=== PATIENT | male | born 1950 | race Caucasian/White ===

== ENCOUNTER 2017-08-08 13:35 | Inpatient (IN) | payer MEDICAID, OTHER ==
[~2017-08-08 13:35] MED LIST: Eptifibatide 0.75 mg/ml 75 MG/100 ML BOTTLE IV ONE; Eptifibatide 20 mg/10mL Inj IVP ONE; HEPARIN SODIUM/NS 2,000 ML IV ONE; Iodixanol 320 MG/ML 100 ML BOTTLE IV ONE; Iodixanol 320 MG/ML 200 ML BOTTLE IV ONE; Iohexol 350mgl/ml 50 ML ONE; Lidocaine 2% Inj (20ml) ONE
[2017-08-08] MEDS ORDERED: Midazolam 2 MG/2 ML VIAL ONE ×2 (13:45→14:14)
[2017-08-08] MEDS ORDERED: Morphine 2 mg/ml ISec ONE (14:06)
[2017-08-08] MEDS ORDERED: Metoprolol 1 mg/ml Inj IVP ONE ×2 (14:30→14:37)
[2017-08-08] MEDS ORDERED: Sodium Chloride 0.9% 1,000 ML IV SCH (14:45)
[2017-08-08] MEDS: Eptifibatide 0.75 mg/ml 75 MG/100 ML BOTTLE IV SCH (14:50)
[2017-08-08] MEDS ORDERED: Bacitracin 500 Units/gm Oint Foilpak UD ONE (15:16)
--- NOTE | 2017-08-08 16:52 | CP.PCM.CON ---
History of Present Illness - History of Present Illness History of Present Illness: CRITICAL CARE CONSULT NOTE HPI: 67yo male with PMhx of HTN, DM presents as transfer from [facility] for cardiac cath. Pt presented there with chest pain for 1 hour, midsternal non radiating, found to have EKG changes, taken to cardiac dental laboratory technician here at [facility], with 2 ISABEL stents placed in RCA as per report. Currently awake, alert in NAD, denies cp, sob, palpitations, [place], dizziness. PMHx as above PSHx as above Allergies NKDA Meds as per EMR ROS as above FHx NC Review of Systems - Review of Systems Review of Systems: as per hpi Past Patient History - CARDIAC Hx Hypertension: Yes Meds Allergies/Adverse Reactions: Allergies Allergy/AdvReac Type Severity Reaction Status Date / Time No Known Allergies Allergy Verified 08/08/17 12:41 - Medications Medications: Current Medications Aspirin (Ecotrin) 81 mg PO DAILY [facility] Atorvastatin Calcium (Lipitor) 40 mg PO DIN [facility] Last Admin: 08/08/17 16:12 Dose: 40 mg Clopidogrel Bisulfate (Plavix) 75 mg PO DAILY [facility] Eptifibatide (Integrilin) 75 mg in 100 mls @ 4.717 mls/hr IV .[id number] [facility]; 1 MCG/KG/MIN PRN Reason: Protocol Stop: 08/09/17 14:46 Sodium Chloride (Sodium Chloride 0.9%) 1,000 mls @ 100 mls/hr IV .Q10H [facility] Stop: 08/08/17 20:00 Last Admin: 08/08/17 15:31 Dose: 100 mls/hr Metoprolol Tartrate (Lopressor) 25 mg PO BID [facility] Physical Exam - Constitutional Appears: Well, Non-toxic, No Acute Distress - Head Exam Head Exam: NORMAL INSPECTION - Eye Exam Eye Exam: Normal appearance - ENT Exam ENT Exam: Mucous Membranes Moist - Respiratory Exam Respiratory Exam: Clear to Auscultation Bilateral, NORMAL BREATHING PATTERN - Cardiovascular Exam Cardiovascular Exam: REGULAR RHYTHM, +S1, +S2 - GI/Abdominal Exam GI & Abdominal Exam: Normal Bowel Sounds, Soft - Extremities Exam Extremities exam: Positive for: normal inspection - Neurological Exam Neurological exam: Alert, Oriented x3 Results - Vital Signs Recent Vital Signs: Last Vital Signs Temp Pulse 89 08/08/17 16:20 Resp 18 08/08/17 16:20 BP 141/95 H 08/08/17 16:00 Pulse Ox 99 08/08/17 16:20 Assessment & Plan - Assessment and Plan (Free Text) Assessment: 67yo male s/p PCI CAD s/p PCI with 2 ISABEL stents HTN DM - afebrile, HD stable, comfortable, on Integrillin dirp Recommend: - supp o2 as needed - check UA, UCx, BCx, Procalcitonin - BP control - ASA, Plavix, Statin, BB - check Lipid panel, HgbA1C - Sliding scale - cont Integrillin as per cardiology for 18h - GI ppx - DVT ppx - Monitor in CCU
--- NOTE | 2017-08-08 16:57 | CP.PCM.HP ---
<Nazario Byrne - Last Filed: 08/09/17 05:48> History of Present Illness - History of Present Illness History of Present Illness: Nazraio Caty PGY 1 IM H&P Note for Dr. Mcdaniel's Hospitalist Service cc: CODE HEART s/p inferior wall STEMI Mr. Gutierrez is a 67-year-old male with a past medical history of diabetes, hypertension, and hyperlipidemia who presents from [facility] for Inferior wall STEMI. Code heart was called in the ED and patient received left heart catheterization by Dr. Benitez via Right Femoral artery. The patient received 2 ISABEL in the RCA. When seen in the ICU post cath,the patient states that he had experienced Left jaw pain while shopping at [employer], which he attributed to a toothache that he has been having and that he has seen a dentist for. When the patient arrived at home, he experienced chest pain severe enough to warrant his [id number] to call EMT. Currently,The patient is comfortable and denies any chest pain,Shortness of breath, fevers/chills, abdominal Pain, and any urinary/bowel habit changes.The patient states that he is visiting from [facility] and that he has been here for two months current. 12-pt ROS was reviewed and is otherwise unremarkable. 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 [place]; denies tobacco/etoh/substance abuse FHx: + heart dz Present on Admission - Present on Admission Any Indicators Present on Admission: No Review of Systems - Review of Systems All systems: reviewed and no additional remarkable complaints except (as per HPI ) Past Patient History - Past Medical History & Family History Past Medical History?: Yes - Past Social History Smoking Status: Never Smoked Alcohol: None Drugs: Denies Home Situation {Lives}: With Family - CARDIAC Hx Hypercholesterolemia: Yes Hx Hypertension: Yes - PULMONARY Hx Respiratory Disorders: No - NEUROLOGICAL Hx Neurological Disorder: No - HEENT Hx HEENT Problems: No - RENAL Hx Chronic Kidney Disease: No - ENDOCRINE/METABOLIC Hx Diabetes Mellitus Type 2: Yes - HEMATOLOGICAL/ONCOLOGICAL Hx Blood Disorders: No - INTEGUMENTARY Hx Dermatological Problems: No - MUSCULOSKELETAL/RHEUMATOLOGICAL Hx Musculoskeletal Disorders: No - GASTROINTESTINAL Hx Gastrointestinal Disorders: No - GENITOURINARY/GYNECOLOGICAL Hx Genitourinary Disorders: No - PSYCHIATRIC Hx Psychophysiologic Disorder: No - SURGICAL HISTORY Hx Surgeries: Yes Hx Cholecystectomy: Yes Hx Musculoskeletal Surgery: Yes Hx Open Reduction Internal Fixation: Yes Hx Tonsillectomy: Yes Meds Allergies/Adverse Reactions: Allergies Allergy/AdvReac Type Severity Reaction Status Date / Time No Known Allergies Allergy Verified 08/08/17 17:57 Physical Exam - Constitutional Appears: Well, Non-toxic, No Acute Distress - Head Exam Head Exam: ATRAUMATIC, NORMAL INSPECTION, NORMOCEPHALIC - Eye Exam Eye Exam: EOMI, Normal appearance, PERRL - ENT Exam ENT Exam: Mucous Membranes Moist, Normal Exam, Normal Oropharynx Additional comments: multiple crowns on teeth in place no signs of gingival/gum disease or infection - Neck Exam Neck exam: Positive for: Normal Inspection - Respiratory Exam Respiratory Exam: Clear to Auscultation Bilateral, NORMAL BREATHING PATTERN. absent: Rales, Rhonchi, Wheezes, Respiratory Distress - Cardiovascular Exam Cardiovascular Exam: RRR, +S1, +S2 - GI/Abdominal Exam GI & Abdominal Exam: Normal Bowel Sounds, Soft. absent: Distended, Tenderness - Extremities Exam Extremities exam: Positive for: normal inspection. Negative for: pedal edema, tenderness Additional comments: pressure packing over R inguinal region s/p cath no bleeding noted from superficial site - Back Exam Back exam: NORMAL INSPECTION - Neurological Exam Neurological exam: Alert, Oriented x3 - Psychiatric Exam Psychiatric exam: Normal Affect, Normal Mood - Skin Skin Exam: Normal Color Results - Vital Signs Recent Vital Signs: Last Vital Signs Temp Pulse 89 08/08/17 16:20 Resp 18 08/08/17 16:20 BP 141/95 H 08/08/17 16:00 Pulse Ox 99 08/08/17 16:20 Assessment & Plan - Assessment and Plan (Free Text) Assessment: 67 yo Ethiopian M with PMH DM2, HTN, and HLD who presented with inferior wall TX s/ p cath with placement of 2 ISABEL in RCA by Dr. Benitez. Patient also has leukocytosis likely reactive and hyperglycemia. Plan: 1. CAD s/p stent placement - post cath precautions in place - ASA, Plavix, Lipitor, Lopressor - Integrilin ordered by Cardio - ACEi will be ordered on discharge after discussion with cardio - A1c and lipid panel ordered - Dr. Benitez following, recs appreciated 2. Leukocytosis - UA and CXR ordered - likely reactive but will take AM labs HHD Patient was seen, examined and discussed with attending, Dr. Jonas Byrne PGY1 <Yoni Mcdaniel - Last Filed: 08/09/17 07:55> Results - Vital Signs Recent Vital Signs: Last Vital Signs Temp 98.9 F 08/09/17 04:00 Pulse 98 H 08/09/17 06:00 Resp 20 08/09/17 06:00 BP 109/63 08/09/17 06:00 Pulse Ox 98 08/09/17 06:00 - Labs Result Diagrams: 08/09/17 06:30 08/09/17 06:30 Labs: Laboratory Results - last 24 hr 08/08/17 08/09/17 08/09/17 22:05 02:05 06:30 WBC RBC Hgb Hct MCV MCH MCHC RDW Plt Count MPV Gran % Lymph % (Auto) Woods % (Auto) Eos % (Auto) Baso % (Auto) Gran # Lymph # Woods # Eos # Baso # Sodium 132 Potassium 4.6 Chloride 102 Carbon Dioxide 19 L Anion Gap 15 BUN 23 H Creatinine 1.4 Est GFR ( Amer) > 60 Est GFR (Non-Af Amer) 50 POC Glucose (mg/dL) 354 H Random Glucose 340 H* Calcium 8.5 Total Bilirubin 1.1 AST 410 H ALT 99 H Alkaline Phosphatase 103 Total Protein 6.9 Albumin 3.7 Globulin 3.2 Albumin/Globulin Ratio 1.2 Triglycerides 217 H Cholesterol 187 LDL Cholesterol Direct 114 HDL Cholesterol 39 Urine Color Yellow Urine Appearance Sl cloudy Urine pH 5.5 Ur Specific Woody 1.015 Urine Protein 30 H Urine Glucose (UA) >=1000 Urine Ketones Negative Urine Blood Moderate H Urine Nitrate Negative Urine Bilirubin Negative Urine Urobilinogen 0.2 Ur Leukocyte Esterase Negative Urine RBC 1 - 3 Urine WBC 0 - 2 Ur Epithelial Cells 0 - 2 Amorphous Sediment Few Urine Bacteria Rare 08/09/17 08/09/17 06:30 07:40 WBC 12.1 H RBC 3.86 Hgb 11.0 L Hct 33.4 L MCV 86.5 MCH 28.5 MCHC 32.9 RDW 13.8 Plt Count 195 MPV 10.8 Gran % 69.5 H Lymph % (Auto) 18.9 L Woods % (Auto) 10.0 H Eos % (Auto) 1.0 L Baso % (Auto) 0.6 Gran # 8.41 H Lymph # 2.3 Woods # 1.2 H Eos # 0.1 Baso # 0.07 Sodium Potassium Chloride Carbon Dioxide Anion Gap BUN Creatinine Est GFR ( Amer) Est GFR (Non-Af Amer) POC Glucose (mg/dL) 366 H Random Glucose Calcium Total Bilirubin AST ALT Alkaline Phosphatase Total Protein Albumin Globulin Albumin/Globulin Ratio Triglycerides Cholesterol LDL Cholesterol Direct HDL Cholesterol Urine Color Urine Appearance Urine pH Ur Specific Woody Urine Protein Urine Glucose (UA) Urine Ketones Urine Blood Urine Nitrate Urine Bilirubin Urine Urobilinogen Ur Leukocyte Esterase Urine RBC Urine WBC Ur Epithelial Cells Amorphous Sediment Urine Bacteria Attending/Attestation - Attestation I have personally seen and examined this patient.: Yes I have fully participated in the care of the patient.: Yes I have reviewed all pertinent clinical information: Yes Notes (Text): 08/09/17 07:52 67 year old male with past medical history of hypertension, diabetes and dyslipidemia who presented with chest pain found to have STEMI. S/p cardiac cath with ISABEL in RCA with Dr. Benitez. Continue with aspirin, plavix, statin, and lopresser as per cardiology. Echocardiogram, lipid panel and A1C are ordered. Leukocytosis likely reactive secondary to above. Will follow up on UA/CXR. Son is at bedside and questions were answered. Yoni Mcdaniel MD Hospitalist.
[2017-08-08 19:46] VITALS: BMI 21.7
[2017-08-08] MEDS ORDERED: Pneumococcal 23-Valent Vaccine IM ONE (19:46)
[2017-08-08] MEDS ORDERED: Influenza Vaccine 60 mcg/0.5 mL SYR (4YR UP) IM ONE (19:46)
[2017-08-08] MEDS: Insulin Lispro (humaLOG) MEDIUM Coverage SC SCH (22:14)
[2017-08-09 02:19] LABS: PH,URINE 5.5 (4.7-8.0); URINE BILIRUBIN NEGATIVE (NEGATIVE); URINE BLOOD MODERATE (NEGATIVE); URINE GLUCOSE (UA) >=1000 mg/dL (NEGATIVE); URINE LEUKOCYTE ESTERASE NEGATIVE Leu/uL (NEGATIVE); URINE NITRATE NEGATIVE (NEGATIVE); URINE PROTEIN 30 mg/dL (<30 mg/dL); URINE UROBILINOGEN 0.2 E.U./dL (<1 E.U./dL)
[2017-08-09 02:23] LABS: URINE APPEARANCE SL CLOUDY (CLEAR); URINE COLOR YELLOW (YELLOW)
[2017-08-09 02:33] LABS: URINE AMORPHOUS SEDIMENT FEW; URINE BACTERIA RARE (NEG); URINE EPITHELIAL CELLS 0 - 2 /hpf (0-5); URINE WBC 0 - 2 /hpf (0-6)
[2017-08-09 07:02] LABS: BASO # 0.07 K/mm3 (0.0-2.0); BASO % 0.6 % (0.0-3.0); EOS # 0.1 (0.0-0.7); GRAN # 8.41 (1.4-6.5); GRAN % 69.5 % (50.0-68.0); LYMPH # 2.3 (1.2-3.4); LYMPH % 18.9 % (22.0-35.0); MEAN CELL VOLUME 86.5 fl (80.0-105.0); MEAN CORPUSCULAR HEMOGLOBIN 28.5 pg (25.0-35.0); MEAN CORPUSCULAR HGB CONC 32.9 g/dl (31.0-37.0); MEAN PLATELET VOLUME 10.8 fl (7.0-11.0); MONO # 1.2 (0.1-0.6); RBC 3.86 10^6/uL (3.5-6.1); RED CELL DISTRIBUTION WIDTH 13.8 % (11.5-14.5); WHITE BLOOD COUNT 12.1 10^3/ul (4.5-11.0)
--- NOTE | 2017-08-09 07:33 | RAD ---
HISTORY: s/p cath, wbc elevated COMPARISON: No prior. FINDINGS: LUNGS: No active pulmonary disease. PLEURA: No significant pleural effusion identified, no pneumothorax apparent. CARDIOVASCULAR: Normal. OSSEOUS STRUCTURES: No significant abnormalities. VISUALIZED UPPER ABDOMEN: Normal. OTHER FINDINGS: None. IMPRESSION: No acute cardiopulmonary disease appreciated.
[2017-08-09 07:39] LABS: LDL CHOLESTEROL 114 mg/dL (0-129)
[2017-08-09 07:47] LABS: ALB/GLOB RATIO 1.2 (1.1-1.8); ALBUMIN 3.7 g/dL (3.0-4.8); ALT/SGPT 99 U/L (7-56); AST/SGOT 410 U/L (17-59); BLOOD UREA NITROGEN 23 mg/dL (7-21); CALCIUM 8.5 mg/dL (8.4-10.5); GFR AFRICAN-AMERICAN > 60; GFR NON-AFRICAN AMERICAN 50; HDL CHOLESTEROL 39 mg/dL (29-60)
[2017-08-09] MEDS: Insulin Lispro (humaLOG) MEDIUM Coverage SC SCH ×3 (08:11→12:09)
--- NOTE | 2017-08-09 08:33 | CARDCATH ---
PROCEDURE DATE: 08/08/2017 HISTORY: The patient is a 67-year-old male traveling from [place] to visit his grandchild, who presented with chest pain consistent with an acute anterior wall NH starting at 11:00 a.m. He was brought to [place] [facility] where he was found to have ST elevations in the inferior leads. Because of this, the patient was transferred here for emergency cardiac cath and PTCA. The blood and plasma laboratory assistant at [facility] was down. In the blood and plasma laboratory assistant in [place], the patient would complain of substernal chest pain. His cardiac risk factors include diabetes mellitus, hypertension and hypercholesterolemia. PROCEDURE: Left heart catheterization with coronary arteriography and left ventriculogram followed by PTCA and stent of an RCA. The right femoral artery was cannulated with 6-Dutch sheath. There were no complications. I performed moderate sedation which included the presence of an independent trained observer that assisted in monitoring the patient's level of consciousness and physiologic status. After administration of fentanyl and Versed, my intra service time was 30 minutes. The patient was started on intravenous Integrilin. She was given 4000 units of intravenous heparin, which resulted in an above normal ACT The findings on catheterization revealed a left main artery that was unremarkable. The LAD revealed an eccentric 60% stenosis in its proximal portion with the rest of the LAD and diagonal vessels with intimal irregularities without significant stenoses. The circumflex artery revealed a 80% stenosis in the proximal portion which was a small to moderate vessel. The obtuse marginal branch was free of significant disease. The right coronary artery which is a dominant vessel revealed a subtotaled occlusion in its proximal portion. After restoring perfusion, there was an 80% stenosis in the midportion of the RCA as well. Left ventriculogram was performed in the UPTON projection. In the UPTON projection, the inferior wall was hypokinetic with the anterior wall moving well. Estimated ejection fraction is 45%. The guiding catheter was placed in the ostium of the RCA. An 0.014 ATW wire was used to cross the critical lesion. A 2.0 balloon was utilized to predilate the proximal subtotaled occlusion. A 3.5 x 12 mm drug-eluting stent was placed and deployed in the proximal lesion, a 2.75 x 8 mm drug-eluting stent was placed and deployed in the mid RCA lesion. After balloon deflation removal, repeat coronary arteriography revealed an excellent result with no residual stenosis and JOSE III flow. The patient tolerated the procedure well. The patient was transferred to the ICU in stable condition. In summary, the procedure was an emergency PTCA and stent of an occluded RCA, treated with heparin, Integrilin as well as PTCA and stent of two lesions with a drug-eluting stent. Cardiac catheterization reveals critical lesions in the circumflex artery, borderline critical lesion in the proximal LAD, an occluded RCA. LV function revealed an hypokinetic inferior wall. Given these findings, the patient will be in ICU, treated with intravenous Integrilin for the next 18 hours. We will continue on aspirin and Plavix. We will continue to monitor closely his hemodynamics and his hospital course. Doug Benitez MD
--- NOTE | 2017-08-09 10:16 | CP.PCM.PN ---
Subjective - Date & Time of Evaluation Date of Evaluation: 08/09/17 Time of Evaluation: 07:30 - Subjective Subjective: Pt seen and examined, reports no major complaints. Sheath pulled, off integrillin Objective - Vital Signs/Intake and Output Vital Signs (last 24 hours): Temp Pulse Resp BP Pulse Ox 98.9 F 102 H 20 128/86 98 08/09/17 04:00 08/09/17 09:47 08/09/17 06:00 08/09/17 09:47 08/09/17 06:00 Intake and Output: 08/09/17 08/09/17 06:59 18:59 Intake Total 500 Output Total 660 Balance -160 - Medications Medications: Current Medications Aspirin (Ecotrin) 81 mg PO DAILY [facility] Last Admin: 08/09/17 09:42 Dose: 81 mg Atorvastatin Calcium (Lipitor) 40 mg PO DIN [facility] Last Admin: 08/08/17 16:12 Dose: 40 mg Clopidogrel Bisulfate (Plavix) 75 mg PO DAILY [facility] Last Admin: 08/09/17 09:47 Dose: 75 mg Eptifibatide (Integrilin) 75 mg in 100 mls @ 4.717 mls/hr IV .[id number] [facility]; 1 MCG/KG/MIN PRN Reason: Protocol Stop: 08/09/17 14:46 Last Admin: 08/08/17 14:50 Dose: 4.717 mls/hr Insulin Human Lispro (Humalog Med) 0 units SC ACHS [facility] PRN Reason: Protocol Last Admin: 08/09/17 08:11 Dose: 8 units Metoprolol Tartrate (Lopressor) 50 mg PO BID [facility] Last Admin: 08/09/17 09:47 Dose: 50 mg - Labs Labs: 08/09/17 06:30 08/09/17 06:30 - Constitutional Appears: Well, Non-toxic, No Acute Distress - Head Exam Head Exam: NORMAL INSPECTION - Eye Exam Eye Exam: Normal appearance - ENT Exam ENT Exam: Mucous Membranes Moist - Respiratory Exam Respiratory Exam: Clear to Ausculation Bilateral, NORMAL BREATHING PATTERN - Cardiovascular Exam Cardiovascular Exam: REGULAR RHYTHM, +S1, +S2 - GI/Abdominal Exam GI & Abdominal Exam: Soft, Normal Bowel Sounds - Extremities Exam Extremities Exam: Full ROM, Normal Inspection - Neurological Exam Neurological Exam: Alert, Awake, Oriented x3 Assessment and Plan - Assessment and Plan (Free Text) Assessment: 67yo male s/p PCI CAD s/p PCI with 2 ISABEL stents HTN DM - afebrile, HD stable, comfortable - off Integrillin dirp - sheath pulled Recommend: - supp o2 as needed - BP control - ASA, Plavix, Statin, BB - check Lipid panel, HgbA1C - Sliding scale, Start levemir 10u QHS - follow up cardiology - GI ppx - DVT ppx - stable transfer to telemetry
--- NOTE | 2017-08-09 12:18 | CP.PCM.PN ---
<Virgil Sifuentes - Last Filed: 08/09/17 12:04> Subjective - Date & Time of Evaluation Date of Evaluation: 08/09/17 Time of Evaluation: 07:55 - Subjective Subjective: Subjective: Patient seen and examined at bedside. Resting comfortably in bed. No acute overnight events. Patient states chest pain has resolved. Offers no new complaints at this time. Denies fever, chills, chest pain, shortness of breath, abdominal pain, nausea, vomiting, diarrhea, constipation, and urinary symptoms. 12-point review of systems negative except as indicated in the HPI Physical Examination: - Constitutional Appears: Well, Non-toxic, No Acute Distress - Head Exam Head Exam: ATRAUMATIC, NORMAL INSPECTION, NORMOCEPHALIC - Eye Exam Eye Exam: EOMI, Normal appearance, PERRL - ENT Exam ENT Exam: Mucous Membranes Moist, Normal Exam, Normal Oropharynx Additional comments: multiple crowns on teeth in place no signs of gingival/gum disease or infection - Neck Exam Neck exam: Positive for: Normal Inspection - Respiratory Exam Respiratory Exam: Clear to Auscultation Bilateral, NORMAL BREATHING PATTERN. absent: Rales, Rhonchi, Wheezes, Respiratory Distress - Cardiovascular Exam Cardiovascular Exam: RRR, +S1, +S2 - GI/Abdominal Exam GI & Abdominal Exam: Normal Bowel Sounds, Soft. absent: Distended, Tenderness - Extremities Exam Extremities exam: Positive for: normal inspection. Negative for: pedal edema, tenderness Additional comments: no bleeding noted from superficial site - Neurological Exam Neurological exam: Patient is awake, alert, responds to verbal stimuli, answers questions appropriately, follows commands, and moves extremities past midline - Psychiatric Exam Psychiatric exam: Normal Affect, Normal Mood - Skin Skin Exam: Normal Color Assessment and Plan: Patient is a 67 y/o male with a PMHx of DM2, HTN, and HLD who presented for evaluation and treatment of chest pain. Patient was found to have an inferior wall MN and is s/p cath with placement of 2 ISABEL in RCA by Dr. Benitez. STEMI - post cath precautions in place - c/w ASA, Plavix, Lipitor, Lopressor, and intregrillin - ACEi will be ordered on discharge after discussion with cardio - A1c pending - lipid panel reviewed and appreciated- TAG elevate - cardiology consulted- Dr. Benitez following, recs appreciated Elevated LFTs - likely 2/2 cardiac congestion 2/2 MN - risks and benefits of continuing statin discussed with cardiology- continue statin - will monitor via CMP Leukocytosis - improving likley reactive - UA and CXR reviewed and appreciated Hx of HTN - HR trended, reviewed, and appreciated, will continue to monitor closely - BPs trended, reviewed, and appreciated, will continue to monitor closely - c/w lopressor Hx of DM - elevated glucose levels noted - ISS changed to high - will continue to monitor closely Hx of HPL - lipid profile reviewed- TAGs elevated - risks and benefits of continuing statin discussed with cardiology- continue statin PPX - dvt ppx- intregillin - gi ppx- famotidine Patient seen, case discussed with, and plan approved by attending physician, Dr. Mcdaniel. Objective - Vital Signs/Intake and Output Vital Signs (last 24 hours): Temp Pulse Resp BP Pulse Ox 98.9 F 102 H 20 128/86 98 08/09/17 04:00 08/09/17 09:47 08/09/17 06:00 08/09/17 09:47 08/09/17 06:00 Intake and Output: 08/09/17 08/09/17 06:59 18:59 Intake Total 500 Output Total 660 Balance -160 - Medications Medications: Current Medications Aspirin (Ecotrin) 81 mg PO DAILY [facility] Last Admin: 08/09/17 09:42 Dose: 81 mg Atorvastatin Calcium (Lipitor) 40 mg PO DIN [facility] Last Admin: 08/08/17 16:12 Dose: 40 mg Clopidogrel Bisulfate (Plavix) 75 mg PO DAILY [facility] Last Admin: 08/09/17 09:47 Dose: 75 mg Docusate Sodium (Colace) 100 mg PO BID [facility] Eptifibatide (Integrilin) 75 mg in 100 mls @ 4.717 mls/hr IV .[id number] [facility]; 1 MCG/KG/MIN PRN Reason: Protocol Stop: 08/09/17 14:46 Last Admin: 08/08/17 14:50 Dose: 4.717 mls/hr Insulin Human Lispro (Humalog Med) 0 units SC ACHS [facility] PRN Reason: Protocol Last Admin: 08/09/17 08:11 Dose: 8 units Metoprolol Tartrate (Lopressor) 50 mg PO BID [facility] Last Admin: 08/09/17 09:47 Dose: 50 mg - Labs Labs: 08/09/17 06:30 08/09/17 06:30 <Yoni Mcdaniel Heather - Last Filed: 08/09/17 13:37> Objective - Vital Signs/Intake and Output Vital Signs (last 24 hours): Temp Pulse Resp BP Pulse Ox 98.9 F 102 H 20 128/86 98 08/09/17 04:00 08/09/17 09:47 08/09/17 06:00 08/09/17 09:47 08/09/17 06:00 Intake and Output: 08/09/17 08/09/17 06:59 18:59 Intake Total 500 Output Total 660 Balance -160 - Medications Medications: Current Medications Aspirin (Ecotrin) 81 mg PO DAILY [facility] Last Admin: 08/09/17 09:42 Dose: 81 mg Atorvastatin Calcium (Lipitor) 40 mg PO DIN [facility] Last Admin: 08/08/17 16:12 Dose: 40 mg Clopidogrel Bisulfate (Plavix) 75 mg PO DAILY [facility] Last Admin: 08/09/17 09:47 Dose: 75 mg Docusate Sodium (Colace) 100 mg PO BID [facility] Famotidine (Pepcid) 20 mg IVP DAILY [facility] Eptifibatide (Integrilin) 75 mg in 100 mls @ 4.717 mls/hr IV .[id number] [facility]; 1 MCG/KG/MIN PRN Reason: Protocol Stop: 08/09/17 14:46 Last Admin: 08/08/17 14:50 Dose: 4.717 mls/hr Insulin Human Lispro (Humalog High) 0 units SC ACHS [facility] PRN Reason: Protocol Metoprolol Tartrate (Lopressor) 50 mg PO BID [facility] Last Admin: 08/09/17 09:47 Dose: 50 mg - Labs Labs: 08/09/17 06:30 08/09/17 06:30 Attending/Attestation - Attestation I have personally seen and examined this patient.: Yes I have fully participated in the care of the patient.: Yes I have reviewed all pertinent clinical information, including history, physical exam and plan: Yes Notes (Text): 08/09/17 13:30 67 year old male with past medical history of hypertension, diabetes and dyslipidemia who presented with chest pain found to have STEMI. He was seen by cardiology and is s/p cardiac cath with ISABEL in RCA. Continue with aspirin, plavix, statin, and lopresser. LFTs are elevated today. Hepatitis panel is ordered. Continue to monitor LFTs while on statin. Leukocytosis likely reactive secondary to above and has improved. CXR/UA were negative. Yoni Mcdaniel MD Hospitalist.
[2017-08-09 12:26] LABS: HEPATITIS B SURFACE AG NEGATIVE (NEGATIVE)
[2017-08-09 12:32] LABS: HEPATITIS A IGM NEGATIVE (NEGATIVE); HEPATITIS B CORE AB Negative (NEGATIVE)
--- NOTE | 2017-08-09 13:11 | PN ---
DATE: 08/09/2017 CARDIOLOGY FOLLOWUP SUBJECTIVE: The patient is chest pain free. OBJECTIVE: VITAL SIGNS: Blood pressure is 128/86, heart rate is 107. NECK: Negative JVD. LUNGS: Without rales. HEART: With S1, S2. EXTREMITIES: Without edema. Right groin site is stable. LABORATORY DATA: LFTs are elevated. IMPRESSION: 1. Status post acute inferior wall myocardial infarction. 2. Diabetes mellitus. 3. Emergency percutaneous transluminal coronary angioplasty and stent of an occluded right coronary artery. 4. Hypercholesterolemia. PLAN: Given these findings, we will transfer the patient to telemetry and begin ambulation today. If the patient is stable, we will consider a low-level stress test in the morning prior to discharge. Doug Benitez MD
--- NOTE | 2017-08-09 15:06 | CARD ---
APPROVED REPORT EKG Measurement Heart [id number] [place] [id number] [id number] <Conclusion> Normal sinus rhythm Inferior-posterior infarct, possibly acute ACUTE [place] Consider right ventricular involvement in acute inferior infarct Abnormal ECG
--- NOTE | 2017-08-09 15:11 | CARD ---
APPROVED REPORT EKG Measurement Heart [id number] [place] [id number] <Conclusion> Normal sinus rhythm Inferior-posterior infarct, possibly acute ACUTE [place] Consider right ventricular involvement in acute inferior infarct Abnormal ECG
[2017-08-09 16:33] LABS: HEPATITIS C ANTIBODY Negative (NEGATIVE)
[2017-08-09] MEDS: Insulin Lispro (HUMAlog) HIGH Coverage SC SCH ×2 (16:52→22:10)
[2017-08-09] MEDS: Eptifibatide 0.75 mg/ml 75 MG/100 ML BOTTLE IV SCH (17:13)
--- NOTE | 2017-08-09 19:57 | CARD ---
APPROVED REPORT EXAM: Two-dimensional and M-mode echocardiogram with Doppler and color Doppler. INDICATION S/P CATH/CP 2D DIMENSIONS Left Atrium (2D)4.1 (1.6-4.0cm)IVSd1.2 (0.7-1.1cm) LVDd3.4 (3.9-5.9cm)PWd1.2 (0.7-1.1cm) LVDs2.6 (2.5-4.0cm)FS (%) 21.4 % LVEF (%)44.5 (>50%) M-Mode DIMENSIONS Aortic Root2.90 (2.2-3.7cm)Aortic Cusp Exc.1.60 (1.5-2.0cm) Aortic Valve AoV Peak Vsbsmstj804.0cm/Carmen Peak GR.7mmHg Mitral Valve MV E Cqjbpktq95.4cm/sMV A Nvkjbrtf097.0cm/sE/A ratio0.7 TDI Lateral E' Peak V5.46cm/sMedial E' Peak V4.00cm/sE/Lateral E'15.6 E/Medial E'21.4 Pulmonary Valve PV Peak Hfkklzky18.6cm/sPV Peak Grad.2mmHg Tricuspid Valve TR Peak Nmybylhg059su/sRAP [id number] Peak Gr.17mmHg [id number] LEFT VENTRICLE The left ventricle is normal size. There is normal left ventricular wall thickness. The systolic function is mildly impaired.EF-45% There is global hypokinesis of the left ventricle. There is normal LV segmental wall motion. Transmitral Doppler flow pattern is Grade III-reversible restrictive diastolic dysfunction. No left ventricle thrombus noted on this study. There is no ventricular septal defect visualized. There is no left ventricular aneurysm. There is no mass noted in the left ventricle. RIGHT VENTRICLE The right ventricle is normal size. There is normal right ventricular wall thickness. The right ventricular systolic function is normal. ATRIA The left atrium is mildly dilated. The right atrium size is normal. The interatrial septum is intact with no evidence for an atrial septal defect. AORTIC VALVE The aortic valve is thickened but opens well. The aortic valve is mildly sclerotic. There is trace aortic regurgitation. There is no aortic valvular stenosis. There is no aortic valvular vegetation. MITRAL VALVE The mitral valve is thickened but opens well. Mitral regurgitation is mild. There is no mitral valve stenosis. There is no evidence of mitral valve prolapse. TRICUSPID VALVE The tricuspid valve leaflets are thickened , but open well. There is trace tricuspid regurgitation.RVSP-27 mmof hg There is no tricuspid valve stenosis. There is no tricuspid valve prolapse or vegetation. PULMONIC VALVE The pulmonary valve is normal in structure. There is no pulmonic valvular regurgitation. There is no pulmonic valvular stenosis. GREAT VESSELS The aortic root is normal in size. The ascending aorta is normal in size. The pulmonary artery is normal. The IVC is normal in size and collapses >50% with inspiration. PERICARDIAL EFFUSION There is no pleural effusion. There is a trace to small pericardial effusion. <Conclusion> The left ventricle is normal size. There is normal left ventricular wall thickness. The systolic function is mildly impaired.EF-45% There is trace aortic regurgitation. Mitral regurgitation is mild. There is trace tricuspid regurgitation.RVSP-27 mmof hg The IVC is normal in size and collapses >50% with inspiration. There is a trace to small pericardial effusion. No vegetationm or thrombus noted.
[2017-08-10 06:31] LABS: BASO # 0.11 K/mm3 (0.0-2.0); BASO % 1.1 % (0.0-3.0); EOS # 0.4 (0.0-0.7); EOS % 3.5 % (1.5-5.0); GRAN # 6.42 (1.4-6.5); GRAN % 62.8 % (50.0-68.0); HEMOGLOBIN 10.2 g/dL (14.0-18.0); LYMPH # 2.2 (1.2-3.4); LYMPH % 21.3 % (22.0-35.0); MEAN CELL VOLUME 85.4 fl (80.0-105.0); MEAN CORPUSCULAR HEMOGLOBIN 29.1 pg (25.0-35.0); MEAN CORPUSCULAR HGB CONC 34.1 g/dl (31.0-37.0); MEAN PLATELET VOLUME 10.8 fl (7.0-11.0); MONO # 1.2 (0.1-0.6); MONO % 11.3 % (1.0-6.0); RBC 3.5 10^6/uL (3.5-6.1); RED CELL DISTRIBUTION WIDTH 13.7 % (11.5-14.5); WHITE BLOOD COUNT 10.2 10^3/ul (4.5-11.0)
[2017-08-10 07:20] LABS: ALB/GLOB RATIO 1.1 (1.1-1.8); ALBUMIN 3.4 g/dL (3.0-4.8)
[2017-08-10] MEDS: Insulin Lispro (HUMAlog) HIGH Coverage SC SCH ×5 (08:00→21:41)
--- NOTE | 2017-08-10 11:27 | CP.PCM.PN ---
<Virgil Sifuentes - Last Filed: 08/10/17 11:29> Subjective - Date & Time of Evaluation Date of Evaluation: 08/10/17 Time of Evaluation: 10:40 - Subjective Subjective: Subjective: Patient seen and examined at bedside. Resting comfortably in bed. No acute overnight events. Able to ambulate without any overt difficulty. Patient states chest pain has resolved. Offers no new complaints at this time. Denies fever, chills, chest pain, shortness of breath, abdominal pain, nausea, vomiting, diarrhea, constipation, and urinary symptoms. 12-point review of systems negative except as indicated in the HPI Physical Examination: - Constitutional Appears: Well, Non-toxic, No Acute Distress - Head Exam Head Exam: ATRAUMATIC, NORMAL INSPECTION, NORMOCEPHALIC - Eye Exam Eye Exam: EOMI, Normal appearance, PERRL - ENT Exam ENT Exam: Mucous Membranes Moist, Normal Exam, Normal Oropharynx Additional comments: multiple crowns on teeth in place no signs of gingival/gum disease or infection - Neck Exam Neck exam: Positive for: Normal Inspection - Respiratory Exam Respiratory Exam: Clear to Auscultation Bilateral, NORMAL BREATHING PATTERN. absent: Rales, Rhonchi, Wheezes, Respiratory Distress - Cardiovascular Exam Cardiovascular Exam: RRR, +S1, +S2 - GI/Abdominal Exam GI & Abdominal Exam: Normal Bowel Sounds, Soft. absent: Distended, Tenderness - Extremities Exam Extremities exam: Positive for: normal inspection. Negative for: pedal edema, tenderness - Neurological Exam Neurological exam: Patient is awake, alert, responds to verbal stimuli, answers questions appropriately, follows commands, and moves extremities past midline - Psychiatric Exam Psychiatric exam: Normal Affect, Normal Mood - Skin Skin Exam: Normal Color Assessment and Plan: Patient is a 67 y/o [place] male with a PMHx of DM2, HTN, and HLD who presented for evaluation and treatment of chest pain. Patient was found to have an inferior wall MN and is s/p cath with placement of 2 ISABEL [address] RCA by Dr[address] Benitez. STEMI - post cath precautions in place - c/w ASA, Plavix, Lipitor, Lopressor, and intregrillin - ACEi will be ordered on discharge after discussion with cardio - A1c noted- patient education on proper diet and exercise provided - lipid panel reviewed and appreciated- TAG elevate - cardiology consulted- Dr. Benitez following, recs appreciated ARCHANA - creatinine noted to be 1.6 from 1. 4 - IVF NS at 60 - monitor closely via CMP Elevated LFTs - downtrending - likely 2/2 cardiac congestion 2/2 MN - risks and benefits of continuing statin discussed with cardiology- continue statin - will monitor via CMP Leukocytosis - improving likley reactive - UA and CXR reviewed and appreciated Hx of HTN - HR trended, reviewed, and appreciated, will continue to monitor closely - BPs trended, reviewed, and appreciated, will continue to monitor closely - c/w lopressor Hx of DM - elevated glucose levels noted- normalizing - ISS changed to high - will continue to monitor closely Hx of HPL - lipid profile reviewed- TAGs elevated - risks and benefits of continuing statin discussed with cardiology- continue statin PPX - dvt ppx- intregillin - gi ppx- famotidine Patient seen, case discussed with, and plan approved by attending physician, Dr. Mcdaniel. Objective - Vital Signs/Intake and Output Vital Signs (last 24 hours): Temp Pulse Resp BP Pulse Ox 98.9 F 88 26 H 149/95 H 98 08/09/17 04:00 08/10/17 10:39 08/09/17 18:00 08/10/17 10:39 08/09/17 18:00 Intake and Output: 08/10/17 08/10/17 06:59 18:59 Intake Total 0 Output Total 0 Balance 0 - Medications Medications: Current Medications Aspirin (Ecotrin) 81 mg PO DAILY [facility] Last Admin: 08/10/17 10:39 Dose: 81 mg Atorvastatin Calcium (Lipitor) 40 mg PO DIN [facility] Last Admin: 08/09/17 17:00 Dose: 40 mg Clopidogrel Bisulfate (Plavix) 75 mg PO DAILY [facility] Last Admin: 08/10/17 10:39 Dose: 75 mg Docusate Sodium (Colace) 100 mg PO BID [facility] Last Admin: 08/10/17 10:40 Dose: Not Given Famotidine (Pepcid) 20 mg IVP DAILY [facility] Last Admin: 08/10/17 10:39 Dose: 20 mg Insulin Human Lispro (Humalog High) 0 units SC ACHS [facility] PRN Reason: Protocol Last Admin: 08/10/17 08:00 Dose: 5 units Metoprolol Tartrate (Lopressor) 50 mg PO BID [facility] Last Admin: 01/04/18 10:39 Dose: 50 mg - Labs Labs: 08/10/17 05:30 08/10/17 05:30 <Yoni Mcdaniel - Last Filed: 08/10/17 12:47> Objective - Vital Signs/Intake and Output Vital Signs (last 24 hours): Temp Pulse Resp BP Pulse Ox 98.1 F 88 18 149/95 H 99 08/10/17 09:00 08/10/17 10:39 08/10/17 09:00 08/10/17 10:39 08/10/17 09:00 Intake and Output: 08/10/17 08/10/17 06:59 18:59 Intake Total 0 Output Total 0 Balance 0 - Medications Medications: Current Medications Aspirin (Ecotrin) 81 mg PO DAILY [facility] Last Admin: 08/10/17 10:39 Dose: 81 mg Atorvastatin Calcium (Lipitor) 40 mg PO DIN [facility] Last Admin: 08/09/17 17:00 Dose: 40 mg Clopidogrel Bisulfate (Plavix) 75 mg PO DAILY [facility] Last Admin: 08/10/17 10:39 Dose: 75 mg Docusate Sodium (Colace) 100 mg PO BID [facility] Last Admin: 08/10/17 10:40 Dose: Not Given Famotidine (Pepcid) 20 mg IVP DAILY [facility] Last Admin: 08/10/17 10:39 Dose: 20 mg Sodium Chloride (Sodium Chloride 0.9%) 1,000 mls @ 60 mls/hr IV .[id number] [facility] Last Admin: 08/10/17 12:44 Dose: Not Given Insulin Human Lispro (Humalog High) 0 units [facility] PRN Reason: Protocol Last Admin: 08/10/17 11:30 Dose: Not Given Metoprolol Tartrate (Lopressor) 50 mg PO BID [facility] Last Admin: 08/10/17 10:39 Dose: 50 mg - Labs Labs: 08/10/17 05:30 08/10/17 05:30 Attending/Attestation - Attestation I have personally seen and examined this patient.: Yes I have fully participated in the care of the patient.: Yes I have reviewed all pertinent clinical information, including history, physical exam and plan: Yes Notes (Text): 08/10/17 12:45 67 year old male with past medical history of hypertension, diabetes and dyslipidemia who presented with chest pain found to have STEMI. He was seen by cardiology and is s/p cardiac cath with ISABEL in RCA. Continue with aspirin, plavix, statin, and lopresser. LFTs were elevated yesterday but now downtrending today. Hepatitis panel is negative. Continue to monitor LFTs while on statin. Leukocytosis likely reactive secondary to above and has resolved. CXR/UA were negative. Today he has mild ARCHANA; possibly contrast induced nephropathy. Will start on iv fluids and monitor. Possible d/c planning in 24 hrs if stable. Yoni Mcdaniel MD Hospitalist.
[2017-08-10 12:29] VITALS: RESP 18
--- NOTE | 2017-08-10 12:32 | CARD ---
APPROVED REPORT EKG Measurement Heart [id number] [place] [id number] <Conclusion> Normal sinus rhythm Inferior infarct, possibly acute ACUTE [place] Consider right ventricular involvement in acute inferior infarct Abnormal ECG
[2017-08-10] MEDS: Sodium Chloride 0.9% 1,000 ML IV SCH ×2 (12:44→12:59)
--- NOTE | 2017-08-10 13:11 | PN ---
DATE: 08/10/2017 CARDIOLOGY FOLLOWUP SUBJECTIVE: The patient is without shortness of breath, without chest pain. No arrhythmias noted on telemetry. OBJECTIVE: VITAL SIGNS: Blood pressure 149/95, heart rate in the 80s. NECK: Negative JVD. LUNGS: Without rales. HEART: With S1, S2. EXTREMITIES: Without edema. LABORATORY DATA: Chemistries; BUN and creatinine is 26 and 1.6. Hemoglobin is 10.2. IMPRESSION: 1. Status post acute inferior wall myocardial infarction. 2. Status post emergency percutaneous transluminal coronary angioplasty and stent of the right coronary artery. 3. Multivessel coronary artery disease. 4. Renal insufficiency. 5. Diabetes mellitus. PLAN: Given these findings, beta-blockers increase yesterday to 50 b.i.d. We will restart the patient on his antihypertensive medication after we check his creatinine again. In addition, we will do a low-level stress test today. We will plan to discharge in the morning. Doug Benitez MD
[2017-08-10 19:21] VITALS: O2SAT 100
[2017-08-11] MEDS: Sodium Chloride 0.9% 1,000 ML IV SCH (03:20)
[2017-08-11 06:05] VITALS: TEMP 98.5
[2017-08-11 08:00] LABS: BASO # 0.11 K/mm3 (0.0-2.0); BASO % 1.1 % (0.0-3.0); EOS # 0.7 (0.0-0.7); EOS % 7.1 % (1.5-5.0); GRAN # 6.2 (1.4-6.5); GRAN % 61.6 % (50.0-68.0); LYMPH # 2.2 (1.2-3.4); LYMPH % 21.8 % (22.0-35.0); MEAN CELL VOLUME 86.1 fl (80.0-105.0); MEAN CORPUSCULAR HEMOGLOBIN 28.4 pg (25.0-35.0); MONO # 0.8 (0.1-0.6); MONO % 8.4 % (1.0-6.0); RBC 3.52 10^6/uL (3.5-6.1); RED CELL DISTRIBUTION WIDTH 13.9 % (11.5-14.5); WHITE BLOOD COUNT 10.1 10^3/ul (4.5-11.0)
[2017-08-11 08:19] LABS: ALB/GLOB RATIO 1.1 (1.1-1.8); ALBUMIN 3.6 g/dL (3.0-4.8); CALCIUM 8.9 mg/dL (8.4-10.5)
[2017-08-11] MEDS: Insulin Lispro (HUMAlog) HIGH Coverage SC SCH ×2 (09:19→12:41)
[2017-08-11 09:26] VITALS: BP 144/72; PULSE 77
--- NOTE | 2017-08-11 11:22 | PN ---
DATE: 08/11/2017 CARDIOLOGY FOLLOWUP SUBJECTIVE: the patient is asymptomatic. PHYSICAL EXAMINATION: VITAL SIGNS: The blood pressure is 144/72, the heart rate is in the 70s. NECK: Negative JVD. LUNGS: Without rales. HEART: S1, S2. EXTREMITIES: Without edema. LABORATORY DATA: Hemoglobin is 10, BUN and creatinine 1.7, potassium is 4.5, glucose is 256. Low-level stress test was unremarkable. IMPRESSION: 1. Status post acute inferior wall myocardial infarction. 2. Status post emergency percutaneous transluminal coronary angioplasty and stent of an occluded right coronary artery. 3. Diabetes mellitus. 4. Renal insufficiency. 5. Hypertension. 6. Hypercholesterolemia. Given these findings, the patient's cardiac status is stable post ND. The patient can be discharged today. I have discussed with the patient his medications as well as followup. He will follow up with me in the office in a week and two. The patient will need an outpatient stress test in approximately a month to evaluate the need for PTCA of his other vessel disease. Doug Benitez MD
[2017-08-11] MEDS ORDERED: Sodium Chloride 0.9% 1,000 ML IV SCH (11:57)
--- NOTE | 2017-08-11 12:37 | CP.PCM.DIS ---
<Virgil Sifuentes - Last Filed: 08/11/17 14:24> Provider - Provider Date of Admission: 08/08/17 14:35 Attending physician: Molly Moy MD Time Spent in preparation of Discharge (in minutes): 45 Diagnosis - Discharge Diagnosis (1) STEMI (ST elevation myocardial infarction) Status: Resolved Priority: High (2) Hypertension Status: Chronic Priority: Medium (3) Hyperlipidemia Status: Chronic Priority: Medium (4) Diabetes Status: Chronic Priority: Medium (5) Acute kidney failure Status: Acute Hospital Course - Lab Results Lab Results: Most Recent Lab Values WBC 10.1 10^3/ul (4.5-11.0) 08/11/17 07:50 RBC 3.52 10^6/uL (3.5-6.1) 08/11/17 07:50 Hgb 10.0 g/dL (14.0-18.0) L 08/11/17 07:50 Hct 30.3 % (42.0-52.0) L 08/11/17 07:50 MCV 86.1 fl (80.0-105.0) 08/11/17 07:50 MCH 28.4 pg (25.0-35.0) 08/11/17 07:50 MCHC 33.0 g/dl (31.0-37.0) 08/11/17 07:50 RDW 13.9 % (11.5-14.5) 08/11/17 07:50 Plt Count 177 10^3/uL (120.0-450.0) 08/11/17 07:50 MPV 11.0 fl (7.0-11.0) 08/11/17 07:50 Gran % 61.6 % (50.0-68.0) 08/11/17 07:50 Lymph % (Auto) 21.8 % (22.0-35.0) L 08/11/17 07:50 [place] % (Auto) 8.4 % (1.0-6.0) H 08/11/17 07:50 Eos % (Auto) 7.1 % (1.5-5.0) H 08/11/17 07:50 Baso % (Auto) 1.1 % (0.0-3.0) 08/11/17 07:50 Gran # 6.20 (1.4-6.5) 08/11/17 07:50 Lymph # 2.2 (1.2-3.4) 08/11/17 07:50 [place] # 0.8 (0.1-0.6) H 08/11/17 07:50 Eos # 0.7 (0.0-0.7) 08/11/17 07:50 Baso # 0.11 K/mm3 (0.0-2.0) 08/11/17 07:50 Sodium 138 mmol/L (132-148) 08/11/17 07:50 Potassium 4.5 mmol/L (3.6-5.0) 08/11/17 07:50 Chloride 108 mmol/L (98-107) H 08/11/17 07:50 Carbon Dioxide 21 mmol/L (21-33) 08/11/17 07:50 Anion Gap 12 (10-20) 08/11/17 07:50 BUN 27 mg/dL (7-21) H 08/11/17 07:50 Creatinine 1.7 mg/dl (0.8-1.5) H 08/11/17 07:50 Est GFR ( Amer) 49 08/11/17 07:50 Est GFR (Non-Af Amer) 40 08/11/17 07:50 POC Glucose (mg/dL) 404 mg/dL (65-110) H* 08/11/17 11:41 Random Glucose 256 mg/dL (70-110) H 08/11/17 07:50 Hemoglobin A1c 9.3 % (4.2-6.5) H 08/09/17 06:30 Calcium 8.9 mg/dL (8.4-10.5) 08/11/17 07:50 Total Bilirubin 0.7 mg/dL (0.2-1.3) 08/11/17 07:50 AST 94 U/L (17-59) H D 08/11/17 07:50 ALT 83 U/L (7-56) H 08/11/17 07:50 Alkaline Phosphatase 105 U/L (38-126) 08/11/17 07:50 Total Protein 6.7 g/dL (5.8-8.3) 08/11/17 07:50 Albumin 3.6 g/dL (3.0-4.8) 08/11/17 07:50 Globulin 3.2 gm/dL 08/11/17 07:50 Albumin/Globulin Ratio 1.1 (1.1-1.8) 08/11/17 07:50 Triglycerides 217 mg/dL (35-160) H 08/09/17 06:30 Cholesterol 187 mg/dL (130-200) 08/09/17 06:30 LDL Cholesterol Direct 114 mg/dL (0-129) 08/09/17 06:30 HDL Cholesterol 39 mg/dL (29-60) 08/09/17 06:30 Urine Color Yellow (YELLOW) 08/09/17 02:05 Urine Appearance Sl cloudy (CLEAR) 08/09/17 02:05 Urine pH 5.5 (4.7-8.0) 08/09/17 02:05 Ur Specific [place] 1.015 (1.005-1.035) 08/09/17 02:05 Urine Protein 30 mg/dL (<30 mg/dL) H 08/09/17 02:05 Urine Glucose (UA) >=1000 mg/dL (NEGATIVE) 08/09/17 02:05 Urine Ketones Negative mg/dL (NEGATIVE) 08/09/17 02:05 Urine Blood Moderate (NEGATIVE) H 08/09/17 02:05 Urine Nitrate Negative (NEGATIVE) 08/09/17 02:05 Urine Bilirubin Negative (NEGATIVE) 08/09/17 02:05 Urine Urobilinogen 0.2 E.U./dL (<1 E.U./dL) 08/09/17 02:05 Ur Leukocyte Esterase Negative Julia/uL (NEGATIVE) 08/09/17 02:05 Urine RBC 1 - 3 /hpf (0-2) 08/09/17 02:05 Urine WBC 0 - 2 /hpf (0-6) 08/09/17 02:05 Ur Epithelial Cells 0 - 2 /hpf (0-5) 08/09/17 02:05 Amorphous Sediment Few 08/09/17 02:05 Urine Bacteria Rare (NEG) 08/09/17 02:05 Hepatitis A IgM Ab Negative (NEGATIVE) 08/09/17 06:30 Hep Bs Antigen Negative (NEGATIVE) 08/09/17 06:30 Hep B Core IgM Ab Negative (NEGATIVE) 08/09/17 06:30 Hepatitis C Antibody Negative (NEGATIVE) 08/09/17 06:30 - Hospital Course Hospital Course: Patient is a 67 y/o male with a PMHx of DM2, HTN, and HLD who was admitted for evaluation and treatment of chest pain. With the use of physical examinations, lab work, and imaging the patient was diagnosed with and treated for an inferior wall AL and is s/p cath with placement of 2 ISABEL in RCA. He was also treated for his chronic medical conditions. During their hospital stay the patient was seen by cardiology and their recommendations were both appreciated and utilized in the care for this patient. During their hospital stay the patient underwent a cardiac catherization and echocardiogram which were reviewed, appreciated, and utilized in the management of the patients clinical course. The echocardiogram showed an EF of 45%. Patient was treated with antihypertensive medications, insulin, intravenous fluids amongst other empiric/ therapeutic medications. At this time the patient is medically stable for discharge. Patient understands and appreciates discharge plan. Patient instructed to follow up with primary care physicians and referrals within three to five days from discharge. Furthermore, the patient is instructed to take medications as prescribed and to return to emergency room for evaluation of intractable headache, fever, chills, dizziness, chest pain, shortness of breath , abdominal pain, nausea, vomiting, diarrhea, constipation, and urinary symptoms. This is a brief summary of the patients hospital course. Please see patient chart for full details. Discharge Exam - Head Exam Head Exam: NORMAL INSPECTION - Additional Findings Additional findings: - Constitutional Appears: Well, Non-toxic, No Acute Distress - Head Exam Head Exam: ATRAUMATIC, NORMAL INSPECTION, NORMOCEPHALIC - Eye Exam Eye Exam: EOMI, Normal appearance, PERRL - ENT Exam ENT Exam: Mucous Membranes Moist, Normal Exam, Normal Oropharynx Additional comments: multiple crowns on teeth in place no signs of gingival/gum disease or infection - Neck Exam Neck exam: Positive for: Normal Inspection - Respiratory Exam Respiratory Exam: Clear to Auscultation Bilateral, NORMAL BREATHING PATTERN. absent: Rales, Rhonchi, Wheezes, Respiratory Distress - Cardiovascular Exam Cardiovascular Exam: RRR, +S1, +S2 - GI/Abdominal Exam GI & Abdominal Exam: Normal Bowel Sounds, Soft. absent: Distended, Tenderness - Extremities Exam Extremities exam: Positive for: normal inspection. Negative for: pedal edema, tenderness - Neurological Exam Neurological exam: Patient is awake, alert, responds to verbal stimuli, answers questions appropriately, follows commands, and moves extremities past midline - Psychiatric Exam Psychiatric exam: Normal Affect, Normal Mood - Skin Skin Exam: Normal Color Discharge Plan - Discharge Medications Prescriptions: amLODIPine [Norvasc] 5 mg PO DIN 14 Days tab Atorvastatin [Lipitor] 40 mg PO DIN 14 Days tab Clopidogrel [Plavix] 75 mg PO DAILY 14 Days tab Insulin Aspar/Insulin N 70/30 [Novolog Mix 70/30-U/ml 3Ml] 5 unit SC BID #1 cartridge Telmisartan 40 mg PO DAILY 14 Days tablet - Follow Up Plan Condition: GOOD Disposition: HOME/ ROUTINE Patient education suggested?: Yes Instructions: Myocardial Infarction (DC), Myocardial Infarction (GEN) Additional Instructions: Patient Instructions: 1. Take medications as prescribed. - Continue vidagliptin 50mg Bid - start insulin humin 70/30 5 units BID, use glucometer and glucose test strips , check glucose levels before meals - continue Amlodipine 5mg daily, continue telmesartan 40mg daily - start atorvastatin 40mg daily - start plavix 75 mg daily - discontinue metoprolol tartrate, discontinue atorvastatin 5mg PO daily - hold glimeperide, voglibose, and metformin until repeat blood work outpatient and approved to restart by primary care physician. At this time discontinue insulin medication 2. Follow up with clinic in [place] and Dr. Benitez within three to seven days from discharge. 3. Return to the emergency room for evaluation of intractable headache, fever, chills, dizziness, chest pain, shortness of breath, abdominal pain, nausea, vomiting, diarrhea, constipation, and urinary symptoms Referrals: Doug Benitez MD [Family Provider] - <Yoni Mcdaniel - Last Filed: 08/11/17 15:10> Provider - Provider Date of Admission: 08/08/17 14:35 Attending physician: Molly Moy MD Hospital Course - Lab Results Lab Results: Most Recent Lab Values WBC 10.1 10^3/ul (4.5-11.0) 08/11/17 07:50 RBC 3.52 10^6/uL (3.5-6.1) 08/11/17 07:50 Hgb 10.0 g/dL (14.0-18.0) L 08/11/17 07:50 Hct 30.3 % (42.0-52.0) L 08/11/17 07:50 MCV 86.1 fl (80.0-105.0) 08/11/17 07:50 MCH 28.4 pg (25.0-35.0) 08/11/17 07:50 MCHC 33.0 g/dl (31.0-37.0) 08/11/17 07:50 RDW 13.9 % (11.5-14.5) 08/11/17 07:50 Plt Count 177 10^3/uL (120.0-450.0) 08/11/17 07:50 MPV 11.0 fl (7.0-11.0) 08/11/17 07:50 Gran % 61.6 % (50.0-68.0) 08/11/17 07:50 Lymph % (Auto) 21.8 % (22.0-35.0) L 08/11/17 07:50 [place] % (Auto) 8.4 % (1.0-6.0) H 08/11/17 07:50 Eos % (Auto) 7.1 % (1.5-5.0) H 08/11/17 07:50 Baso % (Auto) 1.1 % (0.0-3.0) 08/11/17 07:50 Gran # 6.20 (1.4-6.5) 08/11/17 07:50 Lymph # 2.2 (1.2-3.4) 08/11/17 07:50 [place] # 0.8 (0.1-0.6) H 08/11/17 07:50 Eos # 0.7 (0.0-0.7) 08/11/17 07:50 Baso # 0.11 K/mm3 (0.0-2.0) 08/11/17 07:50 Sodium 138 mmol/L (132-148) 08/11/17 07:50 Potassium 4.5 mmol/L (3.6-5.0) 08/11/17 07:50 Chloride 108 mmol/L (98-107) H 08/11/17 07:50 Carbon Dioxide 21 mmol/L (21-33) 08/11/17 07:50 Anion Gap 12 (10-20) 08/11/17 07:50 BUN 27 mg/dL (7-21) H 08/11/17 07:50 Creatinine 1.7 mg/dl (0.8-1.5) H 08/11/17 07:50 Est GFR ( Amer) 49 08/11/17 07:50 Est GFR (Non-Af Amer) 40 08/11/17 07:50 POC Glucose (mg/dL) 404 mg/dL (65-110) H* 08/11/17 11:41 Random Glucose 256 mg/dL (70-110) H 08/11/17 07:50 Hemoglobin A1c 9.3 % (4.2-6.5) H 08/09/17 06:30 Calcium 8.9 mg/dL (8.4-10.5) 08/11/17 07:50 Total Bilirubin 0.7 mg/dL (0.2-1.3) 08/11/17 07:50 AST 94 U/L (17-59) H D 08/11/17 07:50 ALT 83 U/L (7-56) H 08/11/17 07:50 Alkaline Phosphatase 105 U/L (38-126) 08/11/17 07:50 Total Protein 6.7 g/dL (5.8-8.3) 08/11/17 07:50 Albumin 3.6 g/dL (3.0-4.8) 08/11/17 07:50 Globulin 3.2 gm/dL 08/11/17 07:50 Albumin/Globulin Ratio 1.1 (1.1-1.8) 08/11/17 07:50 Triglycerides 217 mg/dL (35-160) H 08/09/17 06:30 Cholesterol 187 mg/dL (130-200) 08/09/17 06:30 LDL Cholesterol Direct 114 mg/dL (0-129) 08/09/17 06:30 HDL Cholesterol 39 mg/dL (29-60) 08/09/17 06:30 Urine Color Yellow (YELLOW) 08/09/17 02:05 Urine Appearance Sl cloudy (CLEAR) 08/09/17 02:05 Urine pH 5.5 (4.7-8.0) 08/09/17 02:05 Ur Specific [place] 1.015 (1.005-1.035) 08/09/17 02:05 Urine Protein 30 mg/dL (<30 mg/dL) H 08/09/17 02:05 Urine Glucose (UA) >=1000 mg/dL (NEGATIVE) 08/09/17 02:05 Urine Ketones Negative mg/dL (NEGATIVE) 08/09/17 02:05 Urine Blood Moderate (NEGATIVE) H 08/09/17 02:05 Urine Nitrate Negative (NEGATIVE) 08/09/17 02:05 Urine Bilirubin Negative (NEGATIVE) 08/09/17 02:05 Urine Urobilinogen 0.2 E.U./dL (<1 E.U./dL) 08/09/17 02:05 Ur Leukocyte Esterase Negative Julia/uL (NEGATIVE) 08/09/17 02:05 Urine RBC 1 - 3 /hpf (0-2) 08/09/17 02:05 Urine WBC 0 - 2 /hpf (0-6) 08/09/17 02:05 Ur Epithelial Cells 0 - 2 /hpf (0-5) 08/09/17 02:05 Amorphous Sediment Few 08/09/17 02:05 Urine Bacteria Rare (NEG) 08/09/17 02:05 Hepatitis A IgM Ab Negative (NEGATIVE) 08/09/17 06:30 Hep Bs Antigen Negative (NEGATIVE) 08/09/17 06:30 Hep B Core IgM Ab Negative (NEGATIVE) 08/09/17 06:30 Hepatitis C Antibody Negative (NEGATIVE) 08/09/17 06:30 Attending/Attestation - Attestation I have personally seen and examined this patient.: Yes I have fully participated in the care of the patient.: Yes I have reviewed all pertinent clinical information, including history, physical exam and plan: Yes Notes (Text): 08/11/17 15:04 67 year old male with past medical history of hypertension, diabetes and dyslipidemia who presented with chest pain found to have STEMI. He was seen by cardiology and is s/p cardiac cath with ISABEL in RCA. He is on aspirin, plavix, statin, and lopresser. LFTs were elevated but has improved. Hepatitis panel is negative. Leukocytosis was likely reactive secondary to above and has resolved. He has mild ARCHANA, likely contrast induced nephropathy. He was on fluids. He is cleared for discharge by cardiology. He is discharged home to follow up in clinic and with cardiology. Repeat labs (Cr/LFTs) next week. Metformin on hold for now due to renal insufficiency. Yoni Mcdaniel MD Hospitalist.
== END 2017-08-11 17:07 | disposition home or self-care (01) | DRG 247 ==
LOC: CATH 13:35 → ICU 14:35 → 3RSO 08-09 22:44
PROVIDERS: ADMIT Internal Medicine; ATTEND Internal Medicine
PROC: 027035Z Dilation of Coronary Artery, One Artery with Two Drug-eluting Intraluminal Devices, Percutaneous Approach (ICD-10-PCS; principal; 2017-08-08)
PROC: 4A023N7 Measurement of Cardiac Sampling and Pressure, Left Heart, Percutaneous Approach (ICD-10-PCS; 2017-08-08)
PROC: B211YZZ Fluoroscopy of Multiple Coronary Arteries using Other Contrast (ICD-10-PCS; 2017-08-08)
PROC: B215YZZ Fluoroscopy of Left Heart using Other Contrast (ICD-10-PCS; 2017-08-08)
PROC: 3E033PZ Introduction of Platelet Inhibitor into Peripheral Vein, Percutaneous Approach (ICD-10-PCS; 2017-08-08)
DX: I21.19 ST elevation (STEMI) myocardial infarction involving other coronary artery of inferior wall (principal); N17.9 Acute kidney failure, unspecified; E11.65 Type 2 diabetes mellitus with hyperglycemia; E78.00 Pure hypercholesterolemia, unspecified; I10 Essential (primary) hypertension; I25.10 Atherosclerotic heart disease of native coronary artery without angina pectoris; N14.1 Nephropathy induced by other drugs, medicaments and biological substances; T50.8X5A Adverse effect of diagnostic agents, initial encounter; D72.829 Elevated white blood cell count, unspecified; Z90.49 Acquired absence of other specified parts of digestive tract